=== PATIENT | male | born 2000 | race Caucasian/White ===

== ENCOUNTER 2022-02-13 16:30 | Outpatient (RCR) | payer BC, SELFPAY ==
--- NOTE | 2021-11-27 17:03 | HP.PTEVAL_ITS ---
Patient's Visit Information MARISOL DELANEY is a 21 year old M referred to Physical Therapy by SHWETA PERDOMO with a diagnosis of Left Shoulder Pain. Date of Evaluation: 11/27/21 Physical Therapist: Jody Chinchilla DPT - Visit Plan Frequency: 2x /Week Duration: 4 Weeks Plan: Per MD: comprehensive periscapular and RTC strength. 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 Insidious onset- missed a lot of time in 2019 due to broken finger then when he went back the pain was terrible. 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 He has been to multiple MD's. He has had PT on his shoulder prior- back home in [place]- general shoulder program. He is currently performing a home exercise program (prone scaptions, prone W's, bugs, Wall walks (yellow), side planks, scapular wheel, ER @ 90 degrees). He is not having a lot of success with the exercises. Worst: 7-8/10 Agg: overhead, throwing, sleeping on it Best: 0/10 Eases: rest. Takes a day or two to become pain free. Last time he tried throw was 3 weeks ago- he has bad pain where he can hardly throw with speed and velocity. Pain is located in the anterior shoulder- no pain that radiates to the elbow or into the neck. Describes the pain as sharp and shooting. 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 He is left hand dominate. MD doesn't feel that he will play this season- he may play fall ball and season. No aspirations to play after college. Has had MRI and x- rays which have all been negative. No LACEY, blurred vision or dizziness. Runs every day at practice- core strength and weight lifting both upper and lower el dy- no overhead lifting. No significant or consistent elbow pains. He has pain overhead and throughout the throwing motion- Shoulder press and bench press- tries to stay away from overhead. Does not bother him unless he is throwing more than 45 feet and as he throws harder it hurts more. Has had a throwing analysis in [place] which did not reveal anything. Sleep: sore if he rolls over on the left side when he wakes up in the AM- does not wake him up. Having an EMG of his shoulder. Has not had an MRI of his shoulder but does have a history of a neck injury when he was little got hit in the back of the head/neck with a pitch. PMHx: none Meds: none - Objective Posture: FH, RS- can correct but does not maintain. Gait: no deviation noted- posture is still poor- good arm swing and trunk rotation. Observation: left scapula wings with poor movement with shoulder ROM. ROM: Cervical: WFL with the exception of rotation to the left which is 25% diminished and reports tightness, Shoulder: WFL in all planes but reports pain at end range in all motions. Poor scapular mobility left>right. Strength: Cervical: 4+/5 isometric, Shoulder (assessed with hand held dynamometer) Left: Flexion:15 Extn: 45 IR/ER 90/90 degrees: 15,23 IR/ER at neutral: 16/20. Abd:20. Elbow: 4+/5, Wrist: Flexion: 4/5, Extn: 4/5, Camp Housekeeper: 80. Right: Flexion:23 Extn: 50 IR/ER 90/90 degrees: 23/21 IR/ER at neutral: 30/29. Abd:30. Elbow: 4+/5, Wrist: Flexion: 4+/5, Extn: 4+/5, Camp Housekeeper: 100 - Special Tests L Shoulder Empty Can - SS: Positive L Shoulder Belly Press - SupScap: Positive L Shoulder Neer - Impingement: Positive L Shoulder Ignacio Nuno - Impingement: Positive L Shoulder Biceps Load Test - Labrum: Positive - Balance/Special Test Scores Quick DASH Score: 22.7250 - Goals Goal 1:: Patient will be I with HEP and progression Goal Time Frame: 4-6 Weeks Goal 2:: Patient will maintain proper posture t/o tx session to demo increased scap s/s Goal Time Frame: 4-6 Weeks Goal 3:: Patient will demo full AROM of the left shoulder without pain Goal Time Frame: 4-6 Weeks Goal 4:: Patient will return to all normal ADLs without pain Goal Time Frame: 4-6 Weeks - Rehabilitation Potential Physical Therapy Diagnosis: Patient presents with hypomobility- he has decreased pain free ROM, decreased scapular strength/stabilization, poor scapular mobility and muscular endurance leading to poor posture and increased pain with ADL's. - Anticipated Interventions Patient/Client Instruction: Educate patient on: Benefits of Fitness Program Therapeutic Exercise to Include: Strength training, Endurance training, Body mechanics, Postural training, Flexibilty training, Neuromotor development, Passive ROM, Active ROM, Scapular Strength/Stabilization For the Purpose of:: To improve muscle performance and motor function TENS: Yes Cryotherapy (ice pack, ice massage): Yes Thermo therapy (hot pack): Yes Thank you for the opportunity to evaluate your patient. For Medicare and Medicare HMO plans, please review the plan of care and approve it. It will need to be FAXED BACK to us at [phone] for Medicare purposes. For Medicare only, by signing this I certify the plan of care. Please let me know if there are questions or concerns regarding this plan of care. Physician Signature: Date:
--- NOTE | 2022-01-11 17:42 | HP.PTREVAL ---
SHWETA PERDOMO, It has been my pleasure to treat MARISOL DELANEY over the last 7 visits for Left Shoulder Pain. Please see the progress note below for an update on the physical therapy plan of care! Subjective: L shoulder doesnt hurt unless I set it off doing something Objective/Function: L shoulder pain ranges from 1-4/10 (although pt hasnt tried throwing yet). L shoulder MMT: flexion and abd= 4-/5. All others are 5/5 throughout. B shoulder ROM is WFL. Pt is progressing well toward Rx goals but still lacks gross strength in L shoulder Plan Plan: Cont to progress current program with focus on rotator cuff strengthening and scap stab ex's Balance/Gait/Functional tests - Balance/Special Test Scores Quick DASH Score: 20.4525 Goals Goal 1:: Patient will be I with HEP and progression Goal Time Frame: 4-6 Weeks Goal Progress: Progressing Goal 2:: Patient will maintain proper posture t/o tx session to demo increased scap s/s Goal Time Frame: 4-6 Weeks Goal Progress: Not observed today Goal 3:: Patient will demo full AROM of the left shoulder without pain Goal Time Frame: 4-6 Weeks Goal Progress: Goal Met Goal 4:: Patient will return to all normal ADLs without pain Goal Time Frame: 4-6 Weeks Goal Progress: Goal Met Goal 5:: L shoulder ER strength will equal R shoulder ER strength to aid with return to sport without limitation Goal Time Frame: 4-6 Weeks Goal Progress: New goal Anticipated Interventions Patient/Client Instruction: Educate patient on: Benefits of Fitness Program Therapeutic Exercise to Include: Strength training, Endurance training, Body mechanics, Postural training, Flexibilty training, Neuromotor development, Passive ROM, Active ROM, Scapular Strength/Stabilization For the Purpose of:: To improve muscle performance and motor function TENS: Yes Cryotherapy (ice pack, ice massage): Yes Thermo therapy (hot pack): Yes Please do not hesitate to contact me at [phone] by phone or if you have questions or concerns regarding this new plan of care! Sincerely, Jose Prakash, PT, ATC
--- NOTE | 2022-02-13 16:59 | HP.PTDCSUM ---
It has been my pleasure to treat MARISOL DELANEY referred by SHWETA PERDOMO, with the diagnosis of Left Shoulder Pain for a total of 12 visit(s). Discharge Date: Please see the following information for a summary of their discharge status. Subjective: No pain today % Improvement: 80 Objective/Function: Pt has full ROM in L shoulder. L shoulder strength is equal to 5/5. Pt has no limitations with IADL's. Pt is I with HEP. Rx goals achieved Goal 1:: Patient will be I with HEP and progression Goal Progress: Goal Met Goal 2:: Patient will maintain proper posture t/o tx session to demo increased scap s/s Goal Progress: Goal Met Goal 3:: Patient will demo full AROM of the left shoulder without pain Goal Progress: Goal Met Goal 4:: Patient will return to all normal ADLs without pain Goal Progress: Goal Met Goal 5:: L shoulder ER strength will equal R shoulder ER strength to aid with return to sport without limitation Goal Progress: New goal Plan: Discharge to HEP and throwing program If there are questions or concerns regarding this patient's physical therapy, please feel free to call me at [phone]. Thank you for the referral of this patient. Sincerely, Jose Prakash, PT, ATC Balance/Gait/Functional tests - Balance/Special Test Scores Quick DASH Score: 9.0900
== END 2022-02-13 19:00 | disposition home or self-care (01) ==
LOC: PT 16:30
DX: M25.512 Pain in left shoulder (principal)
CPT/HCPCS: 97110; 97162; 97164